=== PATIENT | female | born 1980 | race Caucasian/White ===

== ENCOUNTER → 2018-07-31 | Outpatient (CLI) | payer OTHER ==
[~2018-07-31] MED LIST: BARIUM SULFATE 176 GM BTL PO ONE; BARIUM SULFATE 340 GM POWD ONE; HYDR-653 PO; no rtn meds
--- NOTE | 2018-07-31 11:02 | RADIOLOGY IMAGING REPORT ---
FACILITY: [facility] PATIENT NAME: Mercedez Woodard : 1980 MR: [id number] V: [id number] EXAM DATE: ORDERING PHYSICIAN: SHIRIN BRENNAN TECHNOLOGIST: Location: [facility] Patient: Mercedez Woodard : 1980 Visit/Account:[id number] Date of Sevice: 07/31/2018 Exam type: XR UPPER GI SERIES W/O KUB History: Gastroesophageal reflux Comparison: None. Findings: Fluoroscopy was used for the purposes of an upper GI. 2.3 minutes of fluoroscopy time was used for t otal DAP of 808.58 microGy/m2. The preliminary KUB is negative. Bowel gas pattern is nonspecific. No bowel obstruction. No radio paque renal or ureteral stones. The osseous structures are unremarkable. The upper GI portion study demonstrates normal esophageal motility. No evidence for aspiration. No evidence for esophageal stricture or mass. No evidence for gastroesophageal reflux. The stomach and duodenum are unremarkable. The egress of contrast through the pylorus was slightly d elayed. IMPRESSION: 1. Unremarkable upper GI. Report Dictated By: Pelon Flores MD at 07/31/2018 4:25 PM Report E-Signed By: Pelon Floers MD at 07/31/2018 4:28 PM WSN:[email or web address]
== END ==
LOC: RAD 00:27
PROVIDERS: ATTEND Family Medicine
DX: K21.9 Gastro-esophageal reflux disease without esophagitis (principal)
CPT/HCPCS: 74240